=== PATIENT | male | born 1990 | race African-American/Black ===

== ENCOUNTER 2018-07-09 12:34 | Emergency (ER) | payer SELFPAY ==
--- NOTE | 2018-07-09 13:29 | EDPHYS ---
Physician Documentation [facility] Name: Lydia Pagan Age: 28 yrs Sex: Male : 1990 Arrival Date: 07/09/2018 Time: 12:42 Bed 16 Private MD: ED Physician Rosalio Soto HPI: 07/09 13:31 This 28 yrs old Black Male presents to ER via Ambulatory with complaints of Back Pain. wa 13:31 The patient presents with pain that is acute. The symptoms are located in the low back. wa Onset: The symptoms/episode began/occurred yesterday. The pain does not radiate. Associated signs and symptoms: Pertinent negatives: dysuria, fever, numbness, tingling, weakness. The problem was sustained states dropped a heavy mara awkwardly at work and felt pain immediately. denies fall. Modifying factors: The patient symptoms are alleviated by nothing, the patient symptoms are aggravated by walking. Severity of symptoms: At their worst the symptoms were moderate, in the emergency department the symptoms are unchanged. The patient has not experienced similar symptoms in the past. The patient has not recently seen a physician. Historical: - Allergies: 12:58 No Known Allergies; ch - Home Meds: 12:58 None [Active]; ch - PMHx: 12:58 None; ch - PSHx: 12:58 None; ch - Immunization history:: Adult Immunizations up to date, Flu vaccine is not up to date. - Social history:: Smoking status: Patient/guardian denies using tobacco, Patient/guardian denies using alcohol, street drugs. - Ebola Screening: : Patient negative for fever greater than or equal to 101.5 degrees Fahrenheit, and additional compatible Ebola Virus Disease symptoms Patient denies exposure to infectious person Patient denies travel to an Ebola-affected area in the 21 days before illness onset No symptoms or risks identified at this time. - Family history:: not pertinent. - Hospitalizations: : No recent hospitalization is reported. ROS: 13:32 Constitutional: Negative for fever, chills, and weight loss, Eyes: Negative for injury, wa pain, redness, and discharge, ENT: Negative for injury, pain, and discharge, Neck: Negative for injury, pain, and swelling, Respiratory: Negative for shortness of breath, cough, wheezing, and pleuritic chest pain, Abdomen/GI: Negative for abdominal pain, nausea, vomiting, diarrhea, and constipation, : Negative for injury, bleeding, discharge, and swelling, MS/Extremity: Negative for injury and deformity, Skin: Negative for injury, rash, and discoloration, Neuro: Negative for headache, weakness, numbness, tingling, and seizure. 13:32 Back: Positive for pain with movement, of the lumbar area, sacrum, left low back, left mid back, right mid back and right low back. 13:32 All other systems are negative. Exam: 13:33 Constitutional: This is a well developed, well nourished patient who is awake, alert, wa and in no acute distress. Head/Face: Normocephalic, atraumatic. Eyes: Pupils equal round and reactive to light, extra-ocular motions intact. Lids and lashes normal. Conjunctiva and sclera are non-icteric and not injected. Cornea within normal limits. Periorbital areas with no swelling, redness, or edema. ENT: Nares patent. No nasal discharge, no septal abnormalities noted. Tympanic membranes are normal and external auditory canals are clear. Oropharynx with no redness, swelling, or masses, exudates, or evidence of obstruction, uvula midline. Mucous membranes moist. Neck: Trachea midline, no thyromegaly or masses palpated, and no cervical lymphadenopathy. Supple, full range of motion without nuchal rigidity, or vertebral point tenderness. No Meningismus. Chest/axilla: Normal chest wall appearance and motion. Nontender with no deformity. No lesions are appreciated. Cardiovascular: Regular rate and rhythm with a normal S1 and S2. No gallops, murmurs, or rubs. Normal PMI, no JVD. No pulse deficits. Respiratory: Lungs have equal breath sounds bilaterally, clear to auscultation and percussion. No rales, rhonchi or wheezes noted. No increased work of breathing, no retractions or nasal flaring. Abdomen/GI: Soft, non-tender, with normal bowel sounds. No distension or tympany. No guarding or rebound. No evidence of tenderness throughout. Skin: Warm, dry with normal turgor. Normal color with no rashes, no lesions, and no evidence of cellulitis. MS/ Extremity: Pulses equal, no cyanosis. Neurovascular intact. Full, normal range of motion. Neuro: Awake and alert, GCS 15, oriented to person, place, time, and situation. Cranial nerves II-XII grossly intact. Motor strength 5/5 in all extremities. Sensory grossly intact. Cerebellar exam normal. Normal gait. Psych: Awake, alert, with orientation to person, place and time. Behavior, mood, and affect are within normal limits. 13:33 Back: pain, that is moderate, of the lumbar area, sacrum, left low back, left mid back, right mid back and right low back. Vital Signs: 12:58 BP 115 / 70; Pulse 84; Resp 16; Temp 97.9; Pulse Ox 99% on R/A; Weight 72.57 kg; Height ch 5 ft. 8 in. (172.72 cm); Pain 9/10; 12:58 Body Mass Index 24.33 (72.57 kg, 172.72 cm) MDM: 12:53 Patient medically screened. ar 13:33 Differential diagnosis: sprain. ar 13:34 Data reviewed: vital signs, nurses notes. ar Administered Medications: 13:32 Drug: Motrin 600 mg Route: PO; bp 13:42 Follow up: Response: Pain is decreased bp 13:32 Drug: Tylenol 1000 mg Route: PO; bp 13:42 Follow up: Response: No adverse reaction; Pain is decreased bp Disposition: 07/09/18 13:28 Discharged to Home. Impression: Acute Lower back Sprain. - Condition is Stable. - Discharge Instructions: Back Pain, Adult, [id number]. - Prescriptions for Ibuprofen 600 mg Oral Tablet - take 1 tablet by ORAL route every 6 hours As needed take with food; 30 tablet. Valium 5 mg Oral Tablet - take 1 tablet by ORAL route Every night As needed; 3 tablet. - Medication Reconciliation Form, Thank You Letter, Antibiotic Education, Prescription Opioid Use form. - Follow up: Brandan Wills MD; When: 5 - 6 days; Reason: Recheck today's complaints. - Problem is new. - Symptoms have improved. - Notes: take medication as prescribed. follow up with the bone doctor within 5 days if symptoms do not improve or worsen Signatures: Fifi Ralph, RN RN Rosalio Soto MD MD wa Peltier, Brian, RN RN bp Corrections: (The following items were deleted from the chart) 13:43 13:28 07/09/2018 13:28 Discharged to Home. Impression: Acute Lower back Sprain. bp Condition is Stable. Forms are Medication Reconciliation Form, Thank You Letter, Antibiotic Education, Prescription Opioid Use. Follow up: Brandan Wills; When: 5 - 6 days; Reason: Recheck today's complaints. Problem is new. Symptoms have improved. wa
--- NOTE | 2018-07-09 13:29 | ER ---
Nurse's Notes [facility] Name: Lydia Pagan Age: 28 yrs Sex: Male : 1990 Arrival Date: 07/09/2018 Time: 12:42 Bed 16 Private MD: Diagnosis: Acute Lower back Sprain Presentation: 07/09 12:57 Presenting complaint: Patient states: pain to lower back s/p lifting something at 1130 ch yesterday. when it happened it felt like my L leg went numb and I nearly fell. since then the pain has just gotten worse, lower back and L leg. Transition of care: patient was not received from another setting of care. Onset of symptoms was July 08, 2018 at 11:30. Risk Assessment: Do you want to hurt yourself or someone else? Patient reports no desire to harm self or others. Initial Sepsis Screen: Does the patient meet any 2 criteria? No. Patient's initial sepsis screen is negative. Does the patient have a suspected source of infection? No. Patient's initial sepsis screen is negative. Care prior to arrival: None. 12:57 Method Of Arrival: Ambulatory 12:57 Acuity: AROLDO 4 ch Triage Assessment: 12:58 General: Appears in no apparent distress. comfortable, Behavior is calm, cooperative, ch appropriate for age. Pain: Complains of pain in low back area and mid back area Pain radiates to left leg. Historical: - Allergies: 12:58 No Known Allergies; ch - Home Meds: 12:58 None [Active]; ch - PMHx: 12:58 None; ch - PSHx: 12:58 None; ch - Immunization history:: Adult Immunizations up to date, Flu vaccine is not up to date. - Social history:: Smoking status: Patient/guardian denies using tobacco, Patient/guardian denies using alcohol, street drugs. - Ebola Screening: : Patient negative for fever greater than or equal to 101.5 degrees Fahrenheit, and additional compatible Ebola Virus Disease symptoms Patient denies exposure to infectious person Patient denies travel to an Ebola-affected area in the 21 days before illness onset No symptoms or risks identified at this time. - Family history:: not pertinent. - Hospitalizations: : No recent hospitalization is reported. Screenin:00 Abuse screen: Denies threats or abuse. Denies injuries from another. Nutritional bp screening: No deficits noted. Tuberculosis screening: No symptoms or risk factors identified. Fall Risk None identified. Assessment: 13:00 General: Appears in no apparent distress. uncomfortable, Behavior is calm, cooperative, bp appropriate for age. Pain: Complains of pain in left leg and back and low back area. Neuro: Level of Consciousness is awake, alert, obeys commands, Oriented to person, place, time, situation, Appropriate for age. Cardiovascular: No deficits noted. Respiratory: Airway is patent Respiratory effort is even, unlabored, Respiratory pattern is regular, symmetrical. GI: No signs and/or symptoms were reported involving the gastrointestinal system. : No signs and/or symptoms were reported regarding the genitourinary system. EENT: No deficits noted. Derm: No deficits noted. Musculoskeletal: Circulation, motion, and sensation intact. Range of motion: intact in all extremities. 13:42 Reassessment: PT D/C HOME AMBULATORY, DX WITH LOWER BACK SPRAIN. bp Vital Signs: 12:58 BP 115 / 70; Pulse 84; Resp 16; Temp 97.9; Pulse Ox 99% on R/A; Weight 72.57 kg; Height ch 5 ft. 8 in. (172.72 cm); Pain 9/10; 12:58 Body Mass Index 24.33 (72.57 kg, 172.72 cm) ED Course: 12:42 Patient arrived in ED. mr 12:53 Rosalio Soto MD is Attending Physician. wa 12:57 Triage completed. ch 12:58 Arm band placed on left wrist. Patient placed in an exam room, on a stretcher. ch 13:00 Patient has correct armband on for positive identification. Bed in low position. Call bp light in reach. Side rails up X2. 13:16 Basilio Sheppard, SUJEY is Primary Nurse. bp 13:28 Brandan Wills MD is Referral Physician. wa 13:42 No provider procedures requiring assistance completed. Patient did not have IV access bp during this emergency room visit. Administered Medications: 13:32 Drug: Motrin 600 mg Route: PO; bp 13:42 Follow up: Response: Pain is decreased bp 13:32 Drug: Tylenol 1000 mg Route: PO; bp 13:42 Follow up: Response: No adverse reaction; Pain is decreased bp Outcome: 13:28 Discharge ordered by . wa 13:43 Discharged to home ambulatory. bp 13:43 Condition: stable 13:43 Discharge instructions given to patient, Instructed on discharge instructions, follow up and referral plans. no driving heavy equipment, medication usage, Demonstrated understanding of instructions, follow-up care, medications, Prescriptions given X 2. 13:43 Patient left the ED. bp Signatures: Fifi Ralph, SUJEY RN tyrell DialloClarissa campos mr CharlesRosalio MD MD wa Peltier, Brian, RN RN bp
[2018-07-09] MEDS ORDERED: IBUPROFEN 400 MG TAB ONE (13:38)
[2018-07-09] MEDS ORDERED: ACETAMINOPHEN 500 MG TAB ONE (13:39)
== END 2018-07-09 13:43 | disposition home or self-care (01) ==
LOC: ER 12:34
DX: S33.5XXA Sprain of ligaments of lumbar spine, initial encounter (principal); X58.XXXA Exposure to other specified factors, initial encounter; Y93.89 Activity, other specified; Y92.89 Other specified places as the place of occurrence of the external cause; Y99.8 Other external cause status
CPT/HCPCS: 99283